=== PATIENT | male | born 1955 | race Caucasian/White ===

== ENCOUNTER 2021-05-18 11:37 | Outpatient (REF) | payer MEDICARE, SELFPAY ==
[2021-05-18 14:37] LABS: Anion Gap 15 (12-20); Blood Urea Nitrogen 16 mg/dL (9-16); Carbon Dioxide 23 mmol/L (22-29); Chloride 107 mmol/L (96-108); Estimated Glomerular Filt Rate 57; Potassium 3.4 mmol/L (3.3-5.1); Sodium 142 mmol/L (135-145)
== END 2021-05-18 11:38 | disposition home or self-care (01) ==
LOC: HO.HMGCLDS 11:37
PROVIDERS: PCP Family Medicine; Visit Provider Family Medicine
DX: I10 Essential (primary) hypertension (principal)
CPT/HCPCS: 36415; 80051; 82565; 84520